=== PATIENT | female | born 1955 | race Caucasian/White ===

== ENCOUNTER 2016-10-12 07:05 | Emergency (ER) | payer BC ==
[2016-10-12 07:15] VITALS: BP 98/63
--- NOTE | 2016-10-12 07:26 | UC ---
Skin Complaint HPI - HPI Summary HPI Summary: tick bite x 1 day located behind the right knee no fever, no chills, no joint pain , no rash - History of Current Complaint Chief Complaint: UCSkin Time Seen by Provider: 10/12/16 07:16 Stated Complaint: tick Hx Obtained From: Patient Hx Last Menstrual Period: 2005 Onset/Duration: Sudden Onset, Lasting Days - 1, Still Present Timing: Constant Onset Severity: Mild Current Severity: Mild Location: Other - behind the right knee Aggravating: Nothing Alleviating: Nothing Associated Signs & Symptoms: Positive: Negative - Allergy/Home Medications Allergies/Adverse Reactions: Allergies Allergy/AdvReac Type Severity Reaction Status Date / Time Amoxicillin Allergy Severe rash/ Verified 10/12/16 07:09 facial swelling Morphine Allergy Severe upset Verified 10/12/16 07:09 stomach Levofloxacin [From Levaquin] Allergy Intermediate Rash Verified 10/12/16 07:09 Codeine Allergy Nausea And Verified 10/12/16 07:09 Vomiting Review of Systems Constitutional: Negative Skin: Negative Eyes: Negative ENT: Negative Respiratory: Negative Cardiovascular: Negative Gastrointestinal: Negative Genitourinary: Negative Motor: Negative Neurovascular: Negative Musculoskeletal: Negative Neurological: Negative Psychological: Negative All Other Systems Reviewed And Are Negative: Yes PMH/Surg Hx/FS Hx/Imm Hx Endocrine History Of: Denies: Diabetes, Thyroid Disease Cardiovascular History Of: Reports: Cardiac Disorders - mitral valve prolapse Denies: Hypertension Respiratory History Of: Reports: Pneumonia Denies: Asthma GI/ History Of: Reports: Gall Bladder Disease - Gall bladder removed Neurological History Of: Reports: Migraine Cancer History Of: Denies: Breast Cancer - Surgical History Surgical History: Yes Surgery Procedure, Year, and Place: GB; Appendectomy; at age 2 she had a cysts rmoved on her forehead by her left eye. - Family History Known Family History: Positive: Diabetes, Other - stomach cancer Negative: Cardiac Disease, Hypertension - Social History Alcohol Use: None Substance Use Type: None Smoking Status (MU): Never Smoked Tobacco When Did the Patient Quit Smoking/Using Tobacco: 35 YRS AGO Physical Exam Triage Information Reviewed: Yes Appearance: Well-Appearing, No Pain Distress, Well-Nourished Vital Signs: Initial Vital Signs Temp 98.4 F 10/12/16 07:10 Pulse 59 10/12/16 07:10 Resp 16 10/12/16 07:10 BP 98/63 10/12/16 07:10 Pulse Ox 100 10/12/16 07:10 Vital Signs Reviewed: Yes Eye Exam: Normal Eyes: Positive: Conjunctiva Clear ENT: Positive: Normal ENT inspection, Hearing grossly normal, Pharynx normal Neck exam: Normal Neck: Positive: Supple, Nontender, No Lymphadenopathy Respiratory Exam: Normal Respiratory: Positive: Chest non-tender, Lungs clear, Normal breath sounds, No respiratory distress Cardiovascular: Positive: RRR, No Murmur, Pulses Normal Abdominal Exam: Normal Skin: Positive: Other - small tick behing the right knee , was removed fully using the tick twister Course/Dx - Diagnoses Provider Diagnoses: Tick bite Discharge - Discharge Plan Condition: Stable Disposition: HOME Prescriptions: DOXYcycline CAP(*) [DOXYcycline 100MG CAP(*)] 200 mg PO ONCE #2 cap Patient Education Materials: Tick Bite (ED) Referrals: Heather Wolf MD [Primary Care Provider] - If Needed
== END 2016-10-12 07:33 | disposition home or self-care (01) ==
LOC: UCCORT 07:05
DX: S80.861A Insect bite (nonvenomous), right lower leg, initial encounter (principal); W57.XXXA Bitten or stung by nonvenomous insect and other nonvenomous arthropods, initial encounter; Y93.9 Activity, unspecified; Y92.9 Unspecified place or not applicable; I34.1 Nonrheumatic mitral (valve) prolapse; G43.909 Migraine, unspecified, not intractable, without status migrainosus; Z90.49 Acquired absence of other specified parts of digestive tract; Z88.1 Allergy status to other antibiotic agents; Z88.5 Allergy status to narcotic agent
CPT/HCPCS: 99212; G0463

== ENCOUNTER 2016-10-12 17:47 | Emergency (ER) | payer BC ==
[2016-10-12 18:11] VITALS: BP 99/65
--- NOTE | 2016-10-12 18:26 | UC ---
Skin Complaint HPI - HPI Summary HPI Summary: TICK BITE BEHIND THE RIGHT KNEE, WAS SEEN THIS AM AT THE [facility], TICK WAS REMOVED , NOW THE AREA IS RED AND PAINFUL - History of Current Complaint Chief Complaint: UCSkin Time Seen by Provider: 10/12/16 18:13 Stated Complaint: RE-CHECK SKIN FROM TICK REMOVAL TODAY Hx Obtained From: Patient Hx Last Menstrual Period: 2005 Onset/Duration: Sudden Onset, Lasting Days - 7 HRS, Still Present Timing: Constant Onset Severity: Moderate Current Severity: Moderate Location: Discrete - BEHIND RIGH KNEE Aggravating: Touch Alleviating: Nothing Associated Signs & Symptoms: Positive: Negative - Allergy/Home Medications Allergies/Adverse Reactions: Allergies Allergy/AdvReac Type Severity Reaction Status Date / Time Amoxicillin Allergy Severe rash/ Verified 10/12/16 18:11 facial swelling Morphine Allergy Severe upset Verified 10/12/16 18:11 stomach Levofloxacin [From Levaquin] Allergy Intermediate Rash Verified 10/12/16 18:11 Codeine Allergy Nausea And Verified 10/12/16 18:11 Vomiting ? bandaid Allergy Swelling Uncoded 10/12/16 18:12 Review of Systems Constitutional: Negative Skin: Negative Eyes: Negative ENT: Negative Respiratory: Negative Cardiovascular: Negative Gastrointestinal: Negative Genitourinary: Negative Motor: Negative Neurovascular: Negative Musculoskeletal: Negative Neurological: Negative Psychological: Negative All Other Systems Reviewed And Are Negative: Yes PMH/Surg Hx/FS Hx/Imm Hx Endocrine History Of: Denies: Diabetes, Thyroid Disease Cardiovascular History Of: Reports: Cardiac Disorders - mitral valve prolapse Denies: Hypertension Respiratory History Of: Reports: Pneumonia Denies: Asthma GI/ History Of: Reports: Gall Bladder Disease - Gall bladder removed Neurological History Of: Reports: Migraine Cancer History Of: Denies: Breast Cancer - Surgical History Surgical History: Yes Surgery Procedure, Year, and Place: GB; Appendectomy; at age 2 she had a cysts rmoved on her forehead by her left eye. - Family History Known Family History: Positive: Diabetes, Other - stomach cancer Negative: Cardiac Disease, Hypertension - Social History Alcohol Use: None Substance Use Type: None Smoking Status (MU): Former Smoker When Did the Patient Quit Smoking/Using Tobacco: 35 YRS AGO Physical Exam Triage Information Reviewed: Yes Appearance: Well-Appearing, No Pain Distress, Well-Nourished Vital Signs: Initial Vital Signs Temp 99 F 10/12/16 18:03 Pulse 63 10/12/16 18:03 Resp 24 10/12/16 18:03 BP 99/65 10/12/16 18:03 Vital Signs Reviewed: Yes Eyes: Positive: Conjunctiva Clear ENT Exam: Normal Neck exam: Normal Respiratory Exam: Normal Cardiovascular Exam: Normal Skin: Positive: Other - BEHIND THE RIGHT KNEE AT THE TICK SITE : MILD ERYTHEM , MILD TENDERNESS Course/Dx - Diagnoses Provider Diagnoses: DERMATITIS Discharge - Discharge Plan Condition: Stable Disposition: HOME Patient Education Materials: Dermatitis (ED) Referrals: Heather Wolf MD [Primary Care Provider] - If Needed Additional Instructions: SKIN IRRITATION , ? FROM THE BANDAID DO NOT COVER THE TICK SITE , USE COOL COMPRESSES MAY USE OTC HYDROCORTISONE CREAM 2X PER DAY FOLLOW UP NEEDED
== END 2016-10-12 18:26 | disposition home or self-care (01) ==
LOC: UCCORT 17:47
DX: L30.9 Dermatitis, unspecified (principal); S80.861S Insect bite (nonvenomous), right lower leg, sequela; W57.XXXS Bitten or stung by nonvenomous insect and other nonvenomous arthropods, sequela; I34.1 Nonrheumatic mitral (valve) prolapse; G43.909 Migraine, unspecified, not intractable, without status migrainosus; Z90.49 Acquired absence of other specified parts of digestive tract; Z88.5 Allergy status to narcotic agent; Z88.1 Allergy status to other antibiotic agents; Z88.0 Allergy status to penicillin; Z87.891 Personal history of nicotine dependence
CPT/HCPCS: 99211; G0463

== ENCOUNTER 2016-12-22 10:14 | Emergency (ER) | payer BC, OTHER ==
[2016-12-22] MEDS ORDERED: cefTRIAXone(*) 1 GM in NS 0.9% 50 ML* 50 ML IVPB ONE (12:04)
[2016-12-22 12:41] LABS: Hematocrit 41 % (35-47); Hemoglobin 13.4 g/dl (12.0-16.0); Mean Corpuscular HGB Conc 33 g/dl (31-36); Mean Corpuscular Hemoglobin 31 pg (27-31); Mean Corpuscular Volume 94 fL (80-97); Mean Platelet Volume 10 um3 (7.4-10.4); Red Blood Count 4.35 10^6/ul (4.0-5.4); Red Cell Distribution Width 13 % (10.5-15); White Blood Count 3.7 10^3/ul (3.5-10.8)
[2016-12-22 12:58] LABS: ALT 15 U/L (7-52); AST 21 U/L (13-39); Albumin 4.1 g/dL (3.2-5.2); Alkaline Phosphatase 61 U/L (34-104); Anion Gap 6 mmol/L (2-11); BUN/Creatinine Ratio 11.5 (8-20); Blood Urea Nitrogen 9 mg/dL (6-24); C Reactive Protein < 1.00 mg/L (< 5.00); CO2 Carbon Dioxide 27 mmol/L (22-32); Calcium 9.8 mg/dL (8.6-10.3); Chloride 106 mmol/L (101-111); EGFR African American 95.9 (>60); EGFR Non-African American 74.6 (>60); Globulin 2.4 g/dL (2-4); Glucose 88 mg/dL (70-100); Potassium 3.7 mmol/L (3.5-5.0); Sodium 139 mmol/L (133-145); Total Protein 6.5 g/dL (6.4-8.9)
[2016-12-22] MEDS ORDERED: Iohexol 300* (CONTRAST) 10 ML SDV IV ONE (14:36)
--- NOTE | 2016-12-22 15:09 | RAD ---
INDICATION: Rectal vaginal fistula. COMPARISON: Comparison is made with prior CTs of the abdomen and pelvis from November 03, 2008 and April 03, 2013. TECHNIQUE: A CT scan of the abdomen and pelvis was performed with intravenous and oral contrast following intravenous injection of 69 ml of Omnipaque 300 nonionic contrast. Contiguous axial sections were obtained from the lung bases through the symphysis pubis. Images were reconstructed in the coronal and sagittal planes. FINDINGS: The lung bases are clear. No pleural effusion is present. The liver and spleen are normal in size without significant focal abnormality. The patient is status post cholecystectomy. There is mild intra and extra hepatic ductal distention which appears unchanged from prior studies. The pancreas is normal in size. There is mild pancreatic ductal distention which is unchanged from the study from 2008. The kidneys and adrenal glands are normal in size. No hydronephrosis is seen. No significant focal renal abnormality is seen. The aorta is normal in caliber and demonstrates homogeneous contrast opacification. No significant enlarged retroperitoneal lymph nodes are seen. The stomach, small and large bowel appear nondistended. The patient is status post appendectomy by history. There is mild sigmoid diverticulosis without evidence for diverticulitis. There is no evidence for colitis. The uterus is anteverted and normal in size. No air is seen within the uterus or vagina. No fistula is appreciated. No free intraperitoneal air or fluid is seen. There is a moderate lumbar scoliosis convex toward the left side. There is mild to moderate bilateral osteoarthritic change in the hips. No significant focal osseous abnormality is seen. IMPRESSION: 1. NO EVIDENCE FOR ACUTE FINDING. 2. NO RECTOVAGINAL FISTULA IS SEEN. IF THE PATIENT'S SYMPTOMS PERSIST RECOMMEND A CONTRAST ENEMA FOR FURTHER EVALUATION. 3. STATUS POST CHOLECYSTECTOMY. THERE IS INTRA, EXTRAHEPATIC AND PANCREATIC DUCTAL DISTENTION WHICH IS UNCHANGED FROM PRIOR STUDIES.
[2016-12-22 17:24] LABS: Urine Bilirubin Negative (Negative); Urine Glucose Negative (Negative); Urine Nitrite Negative (Negative)
[2016-12-22 18:14] VITALS: BP 123/84
--- NOTE | 2016-12-22 23:39 | ED ---
Ashlyn Tarango SooYoung, scribed for Mitzi Tyson MD on 12/22/16 at 1152 . GI/ HPI - HPI Summary HPI Summary: A 61 y/o F presents to ED with c/o fecal discharge from her vagina onset yesterday. Associated sx: rectal burning, flatulence. Denies abd pain, melena, hematuria, CP, dyspnea. Pt states having the urge to defecate yesterday, but she was unable to go, denies straining. She urinated and wiped and noticed fecal matter on the tissue, but is sure she hadn't had a BM. This occurred again later. Then the third time, she did have a BM, again she wiped "in front" and had fecal matter on the tissue. Pt is concerned about a possible fistula or infections. Her PCP, Dr. Wolf, is out of town, and they advised her to go to ED. She also sees Dr. Gonzalez at [facility]. PMHx: constipation. She changed her diet to vegan and her BMs are nml with only occasional episodes of constipation. She notes that 3 days ago she ate spicy food that gave her an upset stomach. PSHx: cholecystectomy, appy. She is in a monogamous relationship with her . Her most recent [facility] exam was approximately [address] Gonzalez and showed vaginal atrophy and a yeast infection but was otherwise unremarkable. - History of Current Complaint Chief Complaint: EDGeneral Time Seen by Provider: 12/22/16 11:46 Stated Complaint: DIFFICULT BOWEL MOVEMENT Hx Obtained From: Patient Hx Last Menstrual Period: 2005 Onset/Duration: Started Days Ago, Atraumatic, Still Present Timing: Intermittent Severity: Mild Current Severity: Mild Pain Intensity: 0 - OUT OF 10 Location of Pain: Rectal - mild rectal burning Pain Characteristics: Other: - denies abd pain or vaginal pain Associated Signs and Symptoms: Positive: Rectal Pain - "rectal burning", Other: - pos: fecal discharge from vagina, flatulance. neg: CP, dyspnea,. Negative: Blood-Streaked Stool, Bright Red Blood w/Stool, Blood w/Stool, Hematuria, Dyspureunia, Abdominal Pain, New Sexual Partner, Melena Additional Signs & Symptoms: Positive: Vaginal Discharge - fecal matter per vagina Aggravating Factor(s): Nothing Alleviating Factor(s): Nothing - Additional Pertinent History Primary Care Physician: OLIVER - Allergy/Home Medications Allergies/Adverse Reactions: Allergies Allergy/AdvReac Type Severity Reaction Status Date / Time Amoxicillin Allergy Severe rash/ Verified 12/22/16 10:18 facial swelling Morphine Allergy Severe upset Verified 12/22/16 10:18 stomach Levofloxacin [From Levaquin] Allergy Intermediate Rash Verified 12/22/16 10:18 Codeine Allergy Nausea And Verified 12/22/16 10:18 Vomiting ? bandaid Allergy Swelling Uncoded 12/22/16 10:18 PMH/Surg Hx/FS Hx/Imm Hx Previously Healthy: No Endocrine/Hematology History: Denies: Hx Diabetes, Hx Thyroid Disease Cardiovascular History: Reports: Hx Valvular Heart Disease - mitral valve prolapse Denies: Hx Hypertension Respiratory History: Reports: Hx Pneumonia Denies: Hx Asthma GI History: Reports: Hx Gall Bladder Disease - Gall bladder removed, Hx Gastroesophageal Reflux Disease Musculoskeletal History: Reports: Hx Arthritis, Hx Back Problems - Chronic pain Sensory History: Reports: Hx Contacts or Glasses - Glasses Opthamlomology History: Reports: Hx Contacts or Glasses - Glasses Neurological History: Reports: Hx Migraine - Cancer History Hx Chemotherapy: No Hx Radiation Therapy: No - Surgical History Surgery Procedure, Year, and Place: GB; Appendectomy; at age 2 she had a cysts rmoved on her forehead by her left eye. - Immunization History Date of Tetanus Vaccine: 2014 Date of Influenza Vaccine: NONE Infectious Disease History: No Infectious Disease History: Denies: History Other Infectious Disease, Traveled Outside the [place] in Last 30 Days - Family History Known Family History: Positive: Diabetes, Other - stomach cancer Negative: Cardiac Disease, Hypertension - Social History Occupation: Employed Full-time Lives: With Family Alcohol Use: Rare Hx Substance Use: No Substance Use Type: Reports: None Hx Tobacco Use: Yes Smoking Status (MU): Former Smoker Review of Systems Constitutional: Negative Negative: Chest Pain Negative: Shortness Of Breath Positive: Other - pos: flatulance, rectal burning; neg: melena. Negative: Abdominal Pain Positive: discharge - fecal matter from vagina. Negative: hematuria Skin: Negative Neurological: Negative Psychological: Normal All Other Systems Reviewed And Are Negative: Yes Physical Exam - Summary Physical Exam Summary: RECTAL EXAM: NO OBVIOUS TEARS OR FISTULA PRESENT ON EXTERNAL EXAM. Triage Information Reviewed: Yes Vital Signs On Initial Exam: Initial Vitals Temp Pulse Resp BP Pulse Ox 98.7 F 71 16 127/76 100 12/22/16 10:19 12/22/16 10:19 12/22/16 10:19 12/22/16 10:19 12/22/16 10:19 Vital Signs Reviewed: Yes Appearance: Positive: Well-Appearing, No Pain Distress, Well-Nourished Skin: Positive: Warm, Skin Color Reflects Adequate Perfusion Head/Face: Positive: Normal Head/Face Inspection Eyes: Positive: Conjunctiva Clear ENT: Positive: Normal ENT inspection Neck: Positive: Supple Respiratory/Lung Sounds: Positive: Clear to Auscultation, Breath Sounds Present , Other - no respiratory distress Cardiovascular: Positive: RRR, Other - pulses normal, brisk capillary refill. Negative: Murmur Abdomen Description: Positive: Nontender, Soft Bowel Sounds: Positive: Present Pelvic Exam: Positive: external exam normal, no cerv. motion tender, no masses, discharge - yellow brown discharge left post wall of vagina, other - Atrophied vaginal wall, small closed cervix, small amount of yellow-brown discharge on L- side posterior wall of vagina. no definite fistula tracts seen.. Negative: active bleeding, lesions, mass, tender w/ cervical motion, tender adnexa, tender uterus Musculoskeletal: Positive: Strength/ROM Intact. Negative: Edema Left, Edema Right Neurological: Positive: Sensory/Motor Intact, Alert, Oriented to Person Place, Time, Facial Symmetry, Speech Normal Psychiatric: Positive: Normal - [place] Coma Scale Coma Scale Total: 15 Diagnostics - Vital Signs Vital Signs Temp Pulse Resp BP Pulse Ox 12/22/16 11:31 98.7 F 71 16 127/76 100 12/22/16 10:19 98.7 F 71 16 127/76 100 - Laboratory Lab Results: Lab Results 12/22/16 12/22/16 12/22/16 Range/Units 12:30 12:30 12:30 WBC 3.7 (3.5-10.8) 10^3/ul RBC 4.35 (4.0-5.4) 10^6/ul Hgb 13.4 (12.0-16.0) g/dl Hct 41 (35-47) % MCV 94 (80-97) fL MCH 31 (27-31) pg MCHC 33 (31-36) g/dl RDW 13 (10.5-15) % Plt Count 125 L (150-450) 10^3/ul MPV 10 (7.4-10.4) um3 Neut % (Auto) 64.2 (38-83) % Lymph % (Auto) 25.7 (25-47) % [place] % (Auto) 6.6 (1-9) % Eos % (Auto) 2.2 (0-6) % Baso % (Auto) 1.3 (0-2) % Absolute Neuts (auto) 2.4 (1.5-7.7) 10^3/ul Absolute Lymphs (auto) 1.0 (1.0-4.8) 10^3/ul Absolute Monos (auto) 0.2 (0-0.8) 10^3/ul Absolute Eos (auto) 0.1 (0-0.6) 10^3/ul Absolute Basos (auto) 0 (0-0.2) 10^3/ul Absolute Nucleated RBC 0 10^3/ul Nucleated RBC % 0.1 Sodium 139 (133-145) mmol/L Potassium 3.7 (3.5-5.0) mmol/L Chloride 106 (101-111) mmol/L Carbon Dioxide 27 (22-32) mmol/L Anion Gap 6 (2-11) mmol/L BUN 9 (6-24) mg/dL Creatinine 0.78 (0.51-0.95) mg/dL Est GFR ( Amer) 95.9 (>60) Est GFR (Non-Af Amer) 74.6 (>60) BUN/Creatinine Ratio 11.5 (8-20) Glucose 88 (70-100) mg/dL Lactic Acid 0.6 (0.5-2.0) mmol/L Calcium 9.8 (8.6-10.3) mg/dL Total Bilirubin 0.80 (0.2-1.0) mg/dL AST 21 (13-39) U/L ALT 15 (7-52) U/L Alkaline Phosphatase 61 (34-104) U/L C-Reactive Protein < 1.00 (< 5.00) mg/L Total Protein 6.5 (6.4-8.9) g/dL Albumin 4.1 (3.2-5.2) g/dL Globulin 2.4 (2-4) g/dL Albumin/Globulin Ratio 1.7 (1-3) Urine Color Urine Appearance Urine pH (5-9) Ur Specific [place] (1.010-1.030) Urine Protein (Negative) Urine Ketones (Negative) Urine Blood (Negative) Urine Nitrate (Negative) Urine Bilirubin (Negative) Urine Urobilinogen (Negative) Ur Leukocyte Esterase (Negative) Urine Glucose (Negative) 12/22/16 Range/Units 17:12 WBC (3.5-10.8) 10^3/ul RBC (4.0-5.4) 10^6/ul Hgb (12.0-16.0) g/dl Hct (35-47) % MCV (80-97) fL MCH (27-31) pg MCHC (31-36) g/dl RDW (10.5-15) % Plt Count (150-450) 10^3/ul MPV (7.4-10.4) um3 Neut % (Auto) (38-83) % Lymph % (Auto) (25-47) % [place] % (Auto) (1-9) % Eos % (Auto) (0-6) % Baso % (Auto) (0-2) % Absolute Neuts (auto) (1.5-7.7) 10^3/ul Absolute Lymphs (auto) (1.0-4.8) 10^3/ul Absolute Monos (auto) (0-0.8) 10^3/ul Absolute Eos (auto) (0-0.6) 10^3/ul Absolute Basos (auto) (0-0.2) 10^3/ul Absolute Nucleated RBC 10^3/ul Nucleated RBC % Sodium (133-145) mmol/L Potassium (3.5-5.0) mmol/L Chloride (101-111) mmol/L Carbon Dioxide (22-32) mmol/L Anion Gap (2-11) mmol/L BUN (6-24) mg/dL Creatinine (0.51-0.95) mg/dL Est GFR ( Amer) (>60) Est GFR (Non-Af Amer) (>60) BUN/Creatinine Ratio (8-20) Glucose (70-100) mg/dL Lactic Acid (0.5-2.0) mmol/L Calcium (8.6-10.3) mg/dL Total Bilirubin (0.2-1.0) mg/dL AST (13-39) U/L ALT (7-52) U/L Alkaline Phosphatase (34-104) U/L C-Reactive Protein (< 5.00) mg/L Total Protein (6.4-8.9) g/dL Albumin (3.2-5.2) g/dL Globulin (2-4) g/dL Albumin/Globulin Ratio (1-3) Urine Color Straw Urine Appearance Clear Urine pH 5.0 (5-9) Ur Specific [place] 1.004 L (1.010-1.030) Urine Protein Negative (Negative) Urine Ketones Trace H (Negative) Urine Blood Negative (Negative) Urine Nitrate Negative (Negative) Urine Bilirubin Negative (Negative) Urine Urobilinogen Negative (Negative) Ur Leukocyte Esterase Negative (Negative) Urine Glucose Negative (Negative) Result Diagrams: 12/22/16 12:30 12/22/16 12:30 Lab Statement: Any lab studies that have been ordered have been reviewed, and results considered in the medical decision making process. - CT ABD/PEL CT Interpretation: Positive (See Comments) - IMPRESSION: 1. NO EVIDENCE FOR ACUTE FINDING. 2. NO RECTOVAGINAL FISTULA IS SEEN. IF THE PATIENT'S SYMPTOMS PERSIST RECOMMEND A CONTRAST ENEMA FOR FURTHER EVALUATION. 3. STATUS POST CHOLECYSTECTOMY. THERE IS INTRA, EXTRAHEPATIC AND PANCREATIC DUCTAL DISTENTION WHICH IS UNCHANGED FROM PRIOR STUDIES. CT Interpretation Completed By: Radiologist Re-Evaluation - Re-Evaluation 1 Re-Evaluation Time: 16:53 Change: Unchanged Comment: Discussing CT results with pt. Offering option of placing contrast dye into rectum to look for a fistula. Pt is agreeable to contrast dye test and internal pelvic exam. Pt still without pain, lying comfortably. 2 Re-Evaluation Time: 17:12 Change: Unchanged Comment: Pt still comfortable. Discussing radiology consult with pt; unable to perform barium enema test at this time. Will still perform pelvic exam. Will D/ C with ABX, plans to follow up with Dr. Gonzalez, discussing dispo plans. Pt voiced understanding, she's OK with being D/C. Pt notes that she had a pelvic exam approx one month ago which was nml except for some vaginal dryness and a yeast infection. GIGU Course/Dx - Course Course Of Treatment: Allergies noted. Medications reviewed. Pre-Hypertensive BP reading (127/76); patient referred to PCP for follow-up. Pt is a 61 y/o F presenting with fecal discharge from her vagina onset yesterday. Associated sx: rectal burning, flatulence. Denies abd pain, melena, hematuria, CP, dyspnea. Pt states having the urge to defecate yesterday, but she was unable to go, denies straining. She urinated and wiped and noticed fecal matter on the tissue, but is sure she hadn't had a BM. This occurred again later. Then the third time, she did have a BM, again she wiped "in front" and had fecal matter on the tissue. PCP is Dr. Wolf, and Dr. Gonzalez at [facility]. PMHx: constipation. PSHx: cholecystectomy, appy. Pt given Ceftriaxone Sodium in ED. Labs are WNL except decreased platelet count. Lactic acid is 0.6. UA is nml except specific gravity is 1.004 and trace ketones are present. ABD/PEL CT shows "1. NO EVIDENCE FOR ACUTE FINDING. 2. NO RECTOVAGINAL FISTULA IS SEEN. IF THE PATIENT'S SYMPTOMS PERSIST RECOMMEND A CONTRAST ENEMA FOR FURTHER EVALUATION. 3. STATUS POST CHOLECYSTECTOMY. THERE IS INTRA, EXTRAHEPATIC AND PANCREATIC DUCTAL DISTENTION WHICH IS UNCHANGED FROM PRIOR STUDIES.". Will D/C home with Bactrim, f/u with PCP and Dr. Gonzalez, [facility]. - Diagnoses Differential Diagnoses - Female: Bowel Obstruction, Perirectal Abscess, Ulcerative Colitis/Crohn's Disease, Other - rectovaginal fistula Provider Diagnoses: Rectal vaginal fistula, Thrombocytopenia - Physician Notifications Discussed Care Of Patient With: August Grewal - [facility] Time Discussed With Above Provider: 12:03 Instructed by Provider To: Other - Recommends diagnosing fistula with CT, consult radiology. Discharge - Discharge Plan Condition: Stable Disposition: HOME Prescriptions: Sulfamethox/Trimethoprim DS* [Bactrim DS 800/160 TAB*] 1 tab PO BID #20 tab Patient Education Materials: Anorectal Abscess and Anal Fistula (ED) Referrals: Heather Wolf MD [Primary Care Provider] - (Follow up within 1 day - 4 weeks for further blood pressure evaluation.) Maximino Gonzalez MD [Medical Doctor] - 1 Week (Call for an appointment to be as soon as possible for possible rectovaginal fistula ) Additional Instructions: We think that you have a rectovaginal fistula. Dr. Tyson has sent cultures from your pelvic exam. Those results are pending. She gave you Ceftriaxone 1gm IV while you were in the ER to prevent and treat possible infection. You will continue Bactrim DS twice a day for 10 days after this to continue to prevent infection. We want you to follow up with Dr. Gonzalez within the next 10 days to evaluate this further. He may want additional xrays or he may just repeat the exam. The CT exam with oral and IV contrast today did not show a fistula or abscess or any significant abnormalitites. If you develop discharge , fever, bleeding, abdominal pain or any new or worsening symptoms return to the ER. Please know that your blood pressure reading today was 127/76, which is PRE-HYPERTENSIVE. Follow-up with your primary care provider within 4 weeks for blood pressure readings and further evaluation. Please return to the ED if you experience new or worsening symptoms. Consult Consult: 1207: Consult with Dr. Wade, radiology Recommends CT with contrast oral and IV. 1610: Consult with Dr. Grewal, [facility] Recommends contrast placed into rectum to look for fistula. Recommends internal pelvic exam. Recommends broad spectrum antibiotics. 1710: Consult with Dr. Strickland, radiology The barium enema test is unavailable at this time. The documentation as recorded by the Ashlyn bourne SooYoung accurately reflects the service I personally performed and the decisions made by me, Mitzi Tyson MD.
== END 2016-12-22 18:11 | disposition home or self-care (01) ==
LOC: ED 10:14
DX: D69.6 Thrombocytopenia, unspecified (principal); K60.4 Rectal fistula; Z87.891 Personal history of nicotine dependence
CPT/HCPCS: 36415; 74177; 80053; 81003; 83605; 85025; 86140; 87480; 87491; 87510; 87591; 87661; 99283; J0696; Q9967

== ENCOUNTER 2017-11-16 15:55 | Emergency (ER) | payer BC ==
--- OUTSIDE RECORDS SUMMARY | 2017-11-16 16:20 | XMS REPORT ---
:1955 External Reference #:[id number] Author Organization [facility] Address [address] [place] [address] Phone [phone] Care Team Providers Name Role Phone Heather Cummings M.D. Primary Care Physician Unavailable Payers Type Date Identification Numbers Payment Provider Subscriber Commercial Policy Number: [id number] [facility] Rosalina Guerrero PayID: [id number] [address] [place] [address] Problems Date Description Provider Status Onset: 08/12/2015 Nuclear senile cataract Ana Baker O.D. Active Onset: 08/12/2015 Vitreous degeneration Ana Baker O.D. 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 ETOH Use Occasionally consumes alcohol Smoking Patient has never smoked Recreational Drug Use Denies Drug Use Daily Caffeine Does Not Consume Caffeine Allergies, Adverse Reactions, Alerts Date Description Reaction Status Severity Comments 08/03/2015 Penicillin active 08/03/2015 Levaquin active 08/03/2015 Morphine active 11/02/2017 Amoxicillin active Medications Medication Date Status Form Strength Qnty SIG Indications Ordering Provider Vitamin D Active Tablets 1000Unit every day Unknown 0 Vitamin B12 Active Tablets 100mcg every day Unknown 0 Results Description No Information Procedures Date CPT Code Description Status 10/27/2016 97088 Est Patient Comprehensive Exam Completed 08/12/2015 90308 Determination Of Refractive State Completed 08/12/2015 37482 New Patient Comprehensive Exam Completed 09/13/2011 81999 Determination Of Refractive State Completed 09/13/2011 09612 New Patient Comprehensive Exam Completed Plan of Care 11/02/2017 - Ana Baker O.D.H25.13 Age-related nuclear cataract, bilateralComments:Smoking can increase the risk of developing or worsening any eye related disease, as well as affect your overall health. If you are a smoker , we strongly recommend that you quit.If you are not a smoker, we strongly recommend that you do not start. You have been diagnosed with cataracts. If you are happy with your vision as it is now, then we will see you at your next scheduled appointment. If you feel like your vision is getting worse before your scheduled appointment, please call Micaela Bazan [phone].Follow up:1 Year Follow Up You can expect to have your eyes dilated at your next visit. If Dr. Baker orders any additional testing, it may require extra time. We recommend that you bring sunglasses, as dilation drops often make you light sensitive until they wear off. We always recommend you bring someone to drive you home if you are uncomfortable driving with your eyes dilated. If you have any questions before your next visit, feel free to call our office at [phone].C51.707 Vitreous degeneration, bilateralComments:You have a Posterior Vitreous Detachment. Please read the pamphlet that was given to you. If you have any changes in your floaters or flashing lights, please contact this office.
[2017-11-16 16:22] VITALS: BP 114/68
--- NOTE | 2017-11-16 16:37 | UC ---
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 She denies any fevers chills or rash. The tick is still present. She did not try removing it. No joint aches. She feels fine otherwise. - History of Current Complaint Chief Complaint: UCSkin Time Seen by Provider: 11/16/17 16:27 Stated Complaint: TICK Hx Last Menstrual Period: 2005 Pain Intensity: 0 - Allergy/Home Medications Allergies/Adverse Reactions: Allergies Allergy/AdvReac Type Severity Reaction Status Date / Time amoxicillin Allergy Rash Verified 11/16/17 16:24 codeine Allergy Nausea And Verified 11/16/17 16:24 Vomiting levofloxacin [From Levaquin] Allergy Rash Verified 11/16/17 16:24 morphine Allergy Stomach Verified 11/16/17 16:24 Cramps ? bandaid Allergy Swelling Uncoded 12/22/16 10:18 Home Medications: Home Medications NK [No Home Medications Reported] 11/16/17 [History Confirmed 11/16/17] Review of Systems Constitutional: Negative Skin: Other Eyes: Negative ENT: Negative Respiratory: Negative Cardiovascular: Negative Gastrointestinal: Negative Genitourinary: Negative Motor: Negative Neurovascular: Negative Musculoskeletal: Negative Neurological: Negative Psychological: Negative Is Patient Immunocompromised?: No All Other Systems Reviewed And Are Negative: Yes PMH/Surg Hx/FS Hx/Imm Hx Previously Healthy: Yes - Surgical History Surgical History: Yes Surgery Procedure, Year, and Place: GB; Appendectomy; at age 2 she had a cysts rmoved on her forehead by her left eye. - Family History Known Family History: Positive: Diabetes, Other - stomach cancer Negative: Cardiac Disease, Hypertension - Social History Alcohol Use: Rare Substance Use Type: None Smoking Status (MU): Former Smoker When Did the Patient Quit Smoking/Using Tobacco: 35 YRS AGO Physical Exam Triage Information Reviewed: Yes Appearance: Well-Appearing Vital Signs: Initial Vital Signs Temp 98.5 F 11/16/17 16:18 Pulse 68 11/16/17 16:18 Resp 16 11/16/17 16:18 BP 114/68 11/16/17 16:18 Pulse Ox 98 11/16/17 16:18 Eye Exam: Normal Respiratory Exam: Normal Respiratory: Positive: Lungs clear Cardiovascular Exam: Normal Cardiovascular: Positive: RRR, No Murmur Musculoskeletal Exam: Normal Neurological Exam: Normal Psychological Exam: Normal Skin: Positive: Other - Right medial ankle without tiny tick embedded. There is no engorgement. No rash. Distal moving. Removed easily with her to twist her. Course/Dx - Course Course Of Treatment: Tick removed in usual fashion without any difficulty. Patient tolerated well. - Differential Diagnoses - Skin Complaint Differential Diagnoses: Other - Tick bite - Diagnoses Provider Diagnoses: Tick bite Discharge - Sign-Out/Discharge Documenting (check all that apply): Discharge/Admit/Transfer - Discharge Plan Condition: Stable Disposition: HOME Patient Education Materials: Tick Bite (ED) Referrals: Heather Wolf MD [Primary Care Provider] - If Needed Additional Instructions: The tick was removed quite easily. 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 Watch for any joint aches or bull's-eye rash, fevers or chills and if these are to occur, you should follow up. - Billing Disposition and Condition Condition: STABLE Disposition: Home
== END 2017-11-16 16:43 | disposition home or self-care (01) ==
LOC: UCCORT 15:55
DX: S80.861A Insect bite (nonvenomous), right lower leg, initial encounter (principal); Z88.1 Allergy status to other antibiotic agents; Z88.5 Allergy status to narcotic agent; Z88.0 Allergy status to penicillin; Z87.891 Personal history of nicotine dependence; W57.XXXA Bitten or stung by nonvenomous insect and other nonvenomous arthropods, initial encounter; Y93.9 Activity, unspecified; Y92.9 Unspecified place or not applicable
CPT/HCPCS: 99211; G0463

== ENCOUNTER 2018-09-26 11:18 | Emergency (ER) | payer BC ==
[2018-09-26 11:52] VITALS: BP 128/73
--- NOTE | 2018-09-26 12:15 | UC ---
Lower Extremity/Ankle HPI - HPI Summary HPI Summary: 62-year-old female presents with complaints of right leg pain and swelling. States pain is an intermittent dull ache that begins in her right hip and radiates down her anterior right leg to the foot. Pain has been present "for a while now". She was evaluated by her primary care provider couple months ago for a nodule in her right groin and was told that it was probably an infected hair follicle however is still present. States the nodule is unchanged from previous evaluation. Patient presents today because she developed some right leg swelling last night that subsided with elevation of the leg. She contacted her primary care provider this morning who recommended she be evaluated today for possible DVT. Denies fever, chills, chest pain, shortness of breath, erythema, calf tenderness, recent surgery or confinement, previous DVT or PE, or family history of blood clots. - History of Current Complaint Chief Complaint: UCLowerExtremity Stated Complaint: RIGHT LEG PAIN/SWELLING Time Seen by Provider: 09/26/18 11:54 Hx Obtained From: Patient Hx Last Menstrual Period: 2005 Pain Intensity: 4 - Allergies/Home Medications Allergies/Adverse Reactions: Allergies Allergy/AdvReac Type Severity Reaction Status Date / Time amoxicillin Allergy Rash Verified 08/28/18 11:19 codeine Allergy Nausea And Verified 08/28/18 11:19 Vomiting levofloxacin [From Levaquin] Allergy Rash Verified 08/28/18 11:19 morphine Allergy Stomach Verified 08/28/18 11:19 Cramps ? bandaid Allergy Swelling Uncoded 08/28/18 11:19 PMH/Surg Hx/FS Hx/Imm Hx GI/ History: Gastroesophageal Reflux - Surgical History Surgical History: Yes Surgery Procedure, Year, and Place: GB; Appendectomy; at age 2 she had a cysts removed on her forehead by her left eye. - Family History Known Family History: Positive: Diabetes, Other - stomach cancer, phlebitis Negative: Cardiac Disease, Hypertension, Blood Disorder - Social History Occupation: Retired Lives: With Family Alcohol Use: Rare Substance Use Type: None Smoking Status (MU): Former Smoker Have You Smoked in the Last Year: No When Did the Patient Quit Smoking/Using Tobacco: 35 YRS AGO - Immunization History Vaccination Up to Date: Yes Review of Systems All Other Systems Reviewed And Are Negative: Yes Constitutional: Positive: Negative Skin: Negative: Rash, Bruising, Other - Erythema Respiratory: Negative: Shortness Of Breath, Cough Cardiovascular: Negative: Palpitations, Chest Pain Gastrointestinal: Positive: Negative Genitourinary: Positive: Negative Motor: Negative: Weakness Neurovascular: Negative: Decreased Sensation Musculoskeletal: Positive: Edema - right leg. Negative: Calf Tenderness Neurological: Positive: Negative Is Patient Immunocompromised?: No Physical Exam - Summary Physical Exam Summary: GENERAL APPEARANCE: Well developed, well nourished, alert and cooperative, and appears to be in no acute distress. CARDIAC: Normal S1 and S2. No S3, S4 or murmurs. Rhythm is regular. There is no peripheral edema, cyanosis or pallor. Extremities are warm and well perfused. Capillary refill is less than 2 seconds. Peripheral pulses intact. LUNGS: Clear to auscultation without rales, rhonchi, wheezing or diminished breath sounds. ABDOMEN: Positive bowel sounds. Soft, nondistended, nontender. No guarding or rebound. No masses or hepatosplenomegally. MUSKULOSKELETAL: ROM intact to all extremities. No joint erythema or tenderness. Normal muscular development. Normal gait. BACK: Examination of the spine reveals normal gait and posture, no spinal deformity or tenderness, decreased range of motion or muscular spasm. EXTREMITIES: Hard, mobile, 1 cm nodule right groin without erythema, tenderness , or fluctuance. Bilateral calves supple and non-tender without erythema or edema. Mid-calf circumference 35 cm right and 36 cm left. NEUROLOGICAL: lower extremity strength and sensation symmetric and intact throughout. SKIN: Skin normal color, texture and turgor with no lesions or eruptions. Triage Information Reviewed: Yes Vital Signs: Initial Vital Signs Temp 98.2 F 09/26/18 11:37 Pulse 61 09/26/18 11:37 Resp 22 09/26/18 11:37 BP 128/73 09/26/18 11:37 Pulse Ox 100 09/26/18 11:37 Vital Signs Reviewed: Yes Diagnostics - Radiology No standard instances Radiology Interpretation Completed By: Radiologist Summary of Radiographic Findings: Order Information: VL LOWER EXT VEINS RIGHT. Accession Number: [id number]. CPT: 35890. HISTORY: leg pain and swelling. COMPARISONS: None relevant. TECHNIQUE: Multiple transverse and longitudinal ultrasound images were obtained of the right lower extremity from the level of the common femoral vein inferiorly through to the infrapopliteal veins using grayscale, color Doppler, and spectral Doppler imaging with and without compression and with augmentation. Comparison images were obtained of the contralateral common femoral vein. FINDINGS: VEINS: The venous system of the right lower extremity is compressible throughout its course, with normal flow on color Doppler imaging and normal response to augmentation on spectral Doppler imaging. SOFT TISSUES: Unremarkable. OTHER FINDINGS: None. IMPRESSION : NO RIGHT LOWER EXTREMITY DEEP VEIN THROMBOSIS Lower Extremity Course/Dx - Course Course Of Treatment: 62-year-old female presents with complaints of right leg pain and swelling. States pain is an intermittent dull ache that begins in her right hip and radiates down her anterior right leg to the foot. Pain has been present "for a while now". She was evaluated by her primary care provider couple months ago for a nodule in her right groin and was told that it was probably an infected hair follicle however is still present. States the nodule is unchanged from previous evaluation. Patient presents today because she developed some right leg swelling last night that subsided with elevation of the leg. She contacted her primary care provider this morning who recommended she be evaluated today for possible DVT. Denies fever, chills, chest pain, shortness of breath, erythema, calf tenderness, recent surgery or confinement, previous DVT or PE, or family history of blood clots. Afebrile. VSS. Exam revealed hard, mobile, 1 cm nodule right groin without erythema, tenderness, or fluctuance. Bilateral calves supple and non-tender without erythema or edema. Mid-calf circumference 35 cm right and 36 cm left. I discussed with the patient that I had a low suspicion for a DVT based on her history and physical however since she was instructed by her PCP office to be evaluated for a DVT a Doppler venous US was obtained and was negative. I suspect that her symptoms are likely from a sacroilitis and am recommending conservative treatment at this time. She is to follow up with her PCP in 3-5 days for recheck of symptoms. Anticipatory guidance and warning symptoms were reviewed with the patient. Verbalizes understanding and agrees with POC. - Differential Dx/Diagnosis Differential Diagnosis/HQI/PQRI: Arthritis, Bursitis, Cellulitis, DVT, Phlebitis , Sciatica Provider Diagnosis: Sacroiliitis Discharge - Sign-Out/Discharge Documenting (check all that apply): Patient Departure All imaging exams completed and their final reports reviewed: Yes - Discharge Plan Condition: Stable Disposition: HOME Patient Education Materials: Sacroiliitis (ED) Referrals: Dat Cervantes MD [Primary Care Provider] - 3 Days Additional Instructions: The ultrasound performed in the clinic today was negative for a blood clot. Based on your history and exam I suspect that your pain is likely from a sacroiliitis. Rest the leg as much as possible. Use an [id number] pain medication such as acetaminophen (Tylenol) or ibuprofen (Advil, Motrin) according to directions as needed for pain. Follow-up with your primary care provider next 3-5 days for recheck of her symptoms. Seek immediate medical attention in the emergency room if you develop severe pain that is not managed with pain medication, you have weakness, numbness, or tingling in the leg, foot, or toes, you loses control of her bowel or bladder, have persistent leg swelling, have chest pain, shortness of breath, or have any worsening of symptoms. - Billing Disposition and Condition Condition: STABLE Disposition: Home - Attestation Statements Provider Attestation: I was available for consult. This patient was seen by the MARTIN. The patient was not presented to, seen by, or examined by me. -Kwabena
== END 2018-09-26 13:05 | disposition home or self-care (01) ==
LOC: UCCORT 11:18
DX: M46.1 Sacroiliitis, not elsewhere classified (principal); K21.9 Gastro-esophageal reflux disease without esophagitis; Z88.0 Allergy status to penicillin; Z88.5 Allergy status to narcotic agent; Z88.8 Allergy status to other drugs, medicaments and biological substances; Z91.048 Other nonmedicinal substance allergy status; Z87.891 Personal history of nicotine dependence
CPT/HCPCS: 99201; G0463